=== PATIENT | female | born 1980 | race Caucasian/White ===

== ENCOUNTER 2021-12-10 13:58 | Emergency (ER) | payer MEDICAID, OTHER ==
[~2021-12-10] VITALS: Ht 165.1 cm; Wt 60.0 kg
[2021-12-10 14:13] VITALS: BP 108/78
[2021-12-10] MEDS ORDERED: ONDANSETRON HCL 4 MG/2 ML VIAL IV ONE (14:15)
[2021-12-10] MEDS ORDERED: SODIUM CHLORIDE 0.9% 1,000 ML IVB ONE (14:15)
[2021-12-10] MEDS ORDERED: KETOROLAC TROMETH 30 MG/ML 1ML VIAL IV ONE (14:15)
[2021-12-10 15:54] LABS: Basophils # (auto) 0.1 10 ^3/uL (0-0.2); Basophils % (auto) 0.8 % (0.0-2.0); Eosinophils # (auto) 0.1 10 ^3/uL (0-0.8); Eosinophils % (auto) 1.5 % (0.0-7.0); Hematocrit 38.4 % (36.0-46.0); Hemoglobin 12.6 g/dL (12.2-16.2); Lymphocytes % (auto) 22.1 % (10.0-50.0); Mean Corpuscular Hemoglobin 27.7 pg (28.0-32.0); Mean Corpuscular Hgb Conc. 32.9 g/dL (32.0-36.0); Mean Corpuscular Volume 84.3 fL (80.0-100.0); Monocytes # (auto) 0.6 10 ^3/uL (0-1.3); Monocytes % (auto) 6.4 % (0.0-12.0); Neutrophils # (auto) 6.2 10 ^3/uL (1.6-8.6); Neutrophils % (auto) 69.2 % (37.0-80.0); Nucleated Red Blood Cells % 0.1 %; Red Blood Cells 4.56 10^6/uL (4.0-5.20)
[2021-12-10 16:07] LABS: Albumin 3.4 g/dL (3.4-5.0); Calcium 8.5 mg/dL (8.5-10.1)
[2021-12-10 16:09] LABS: BUN/Creatinine Ratio 15.2
[2021-12-10 16:11] LABS: Bilirubin, Total 0.5 mg/dL (0.2-1.0); Total Protein 7.4 g/dL (6.4-8.2)
[2021-12-10 16:43] LABS: Urine Bacteria NONE SEEN /hpf (None Seen); Urine Blood Negative /uL (Negative); Urine Specific Gravity 1.019 (1.001-1.035); Urine WBC 128 /hpf (0 - 5)
[2021-12-10] MEDS ORDERED: cefTRIAXone 1GM/50ML D5W 50 ML IV ONE (17:45)
[2021-12-10] MEDS ORDERED: TRAM-297 PO (17:47)
[2021-12-10] MEDS ORDERED: CIPR-173 PO (17:47)
== END 2021-12-10 17:06 | disposition home or self-care (01) ==
LOC: ER 13:58 → EDBD 13:58 → ER 17:06
DX: N39.0 Urinary tract infection, site not specified (principal); R11.0 Nausea; N18.9 Chronic kidney disease, unspecified; F17.210 Nicotine dependence, cigarettes, uncomplicated
CPT/HCPCS: 36415; 74176; 80053; 81001; 83690; 85025; 99284; J7030

== ENCOUNTER 2022-03-16 20:57 | Emergency (ER) | payer MEDICAID ==
[~2022-03-16] VITALS: Ht 165.1 cm; Wt 54.0 kg
[~2022-03-16 20:57] MED LIST: CIPR-173 PO; TRAM-297 PO
[2022-03-16 23:10] LABS: Basophils # (auto) 0.1 10 ^3/uL (0-0.2); Basophils % (auto) 0.9 % (0.0-2.0); Eosinophils # (auto) 0.1 10 ^3/uL (0-0.8); Eosinophils % (auto) 1.5 % (0.0-7.0); Hematocrit 37.3 % (36.0-46.0); Hemoglobin 12.5 g/dL (12.2-16.2); Lymphocytes # (auto) 3.7 10 ^3/uL (0.4-5.4); Lymphocytes % (auto) 41.3 % (10.0-50.0); Mean Corpuscular Hemoglobin 28.7 pg (28.0-32.0); Mean Corpuscular Hgb Conc. 33.6 g/dL (32.0-36.0); Mean Corpuscular Volume 85.2 fL (80.0-100.0); Monocytes # (auto) 0.6 10 ^3/uL (0-1.3); Monocytes % (auto) 6.3 % (0.0-12.0); Neutrophils # (auto) 4.5 10 ^3/uL (1.6-8.6); Red Blood Cells 4.37 10^6/uL (4.0-5.20); Red Cell Distribution Width 13.7 % (11.8-14.3); White Blood Cell 9.1 10^3/uL (4.4-10.8)
[2022-03-16 23:22] LABS: Albumin 3.9 g/dL (3.4-5.0); Calcium 8.8 mg/dL (8.5-10.1); Potassium 4.4 mmol/L (3.5-5.1)
[2022-03-16 23:25] LABS: BUN/Creatinine Ratio 15.5
[2022-03-16 23:27] LABS: Bilirubin, Total 0.5 mg/dL (0.2-1.0); Total Protein 7.6 g/dL (6.4-8.2)
[2022-03-16] MEDS ORDERED: IBUP200C14 PO (23:39)
[2022-03-16] MEDS ORDERED: PHE100C PO (23:39)
[2022-03-16] MEDS ORDERED: KETOROLAC TROMETH 60MG/2ML VIAL IM ONE (23:45)
[2022-03-16] MEDS ORDERED: HYDROcodone-ACET 5/325MG TAB PO ONE (23:45)
[2022-03-16] MEDS ORDERED: PHENYTOIN SODIUM 100 MG CAP PO ONE (23:45)
[2022-03-17 01:14] VITALS: BP 100/68
== END 2022-03-17 01:22 | disposition home or self-care (01) ==
LOC: ER 21:00
DX: N20.0 Calculus of kidney (principal); F17.210 Nicotine dependence, cigarettes, uncomplicated
CPT/HCPCS: 36415; 76775; 80053; 84702; 85025; 96372; 99284; J1885